=== PATIENT | female | born 1985 | race Two or more races ===

== ENCOUNTER → 2017-07-21 11:09 | Outpatient (CLI) | payer MEDICAID | END | disposition home or self-care (01) | LOC: D.CN 07-18 10:00 | DX: R55 Syncope and collapse (principal) ==

== ENCOUNTER 2017-10-16 13:20 | Emergency (ER) | payer MEDICAID | END 2017-10-16 13:47 | disposition home or self-care (01) | LOC: D.ER 13:20 | DX: M54.5 Low back pain (principal); F17.200 Nicotine dependence, unspecified, uncomplicated ==